=== PATIENT | female | born 1935 | race Caucasian/White ===

== ENCOUNTER 2018-02-14 18:26 | Emergency (ER) | payer OTHER ==
[~2018-02-14] VITALS: Ht 165.1 cm; Wt 65.8 kg
[2018-02-14] MEDS ORDERED: XARELTO20 MG (18:47)
[2018-02-14] MEDS ORDERED: CARDURA XL4 MG (18:47)
[2018-02-14] MEDS ORDERED: ACID CONTROLLER20 MG (18:48)
[2018-02-14] MEDS ORDERED: ATORVASTATIN CA80 MG (18:49)
[2018-02-14] MEDS ORDERED: TOLTERODINE TART4 MG (18:49)
[2018-02-14] MEDS ORDERED: LISINOPRIL-HCT1 EAC1 (18:50)
[2018-02-14] MEDS ORDERED: TOPROL XL100 M1 (18:50)
== END 2018-02-14 19:52 | disposition home or self-care (01) ==
LOC: ER 18:26
DX: S91.311A Laceration without foreign body, right foot, initial encounter (principal); W25.XXXA Contact with sharp glass, initial encounter; Y93.89 Activity, other specified; Y92.89 Other specified places as the place of occurrence of the external cause; Y99.8 Other external cause status